=== PATIENT | female | born 1945 | race Caucasian/White ===

== ENCOUNTER 2017-12-13 18:32 | Inpatient (IN) | payer MEDICARE ==
[~2017-12-13] VITALS: Ht 167.6 cm; Wt 87.4 kg
[2017-12-13] MEDS ORDERED: JANUVIA100 MG PO (18:37)
[2017-12-13] MEDS ORDERED: ZESTRIL40 MG PO (18:38)
[2017-12-13] MEDS ORDERED: VESICARE10 MG PO (18:38)
[2017-12-13] MEDS ORDERED: FERROUS SULFAT325 MG PO (18:39)
[2017-12-13] MEDS ORDERED: GABAPENTIN100 MG PO (18:39)
[2017-12-13 19:16] LABS: BASOPHILS 1.2 % (0-2); EOSINOPHILS 5.5 % (0-7); HEMATOCRIT 31.6 % (36.0-48.0); HEMOGLOBIN 10.1 g/dL (12-16); IMMATURE GRANULOCYTES 0.2 % (0-5); LYMPHOCYTES 24.1 % (15-50); MCH 29.7 pg (26.0-34.0); MCV 92.9 fL (80.0-100.0); MEAN PLATELET VOLUME 9.8 fL (7.4-10.4); MONOCYTES 5.5 % (2-11); NEUTROPHILS 63.5 % (40-80); PLATELET COUNT 225 10x3/uL (130-400); RDW 12.9 % (11.5-14.5); WBC 5.1 10x3/uL (4.8-10.8)
[2017-12-13 19:36] LABS: ALBUMIN 2.9 g/dL (3.4-5.0); ANION GAP 17.7 mmol/L (8-16); BILIRUBIN - TOTAL 0.31 mg/dL (0.2-1.3); CALCIUM 8.6 mg/dL (8.5-10.1); CARBON DIOXIDE 19.6 mmol/L (21.0-32.0); CREATININE - SERUM 2.4 mg/dL (0.6-1.3); PROTEIN - SERUM 7.1 g/dL (6.4-8.2)
[2017-12-13 19:37] LABS: POTASSIUM - SERUM 6.3 mmol/L (3.5-5.1)
[2017-12-13 20:35] LABS: APPEARANCE HAZY (CLEAR); BILIRUBIN NEGATIVE (NEGATIVE); COLOR YELLOW (YELLOW); GLUCOSE NEGATIVE (NEGATIVE); KETONE NEGATIVE (NEGATIVE); NITRITE NEGATIVE (NEGATIVE); PROTEIN TRACE mg/dL (NEGATIVE); SPECIFIC GRAVITY 1.015 (1.005-1.020); UROBILINOGEN NORMAL (NORMAL)
[2017-12-13 20:40] LABS: BACTERIA MANY /hpf (NONE SEEN); EPITHELIAL CELLS 0-5 /hpf (0-5); RED CELLS - URINE >50 /hpf (0-5); WHITE CELLS - URINE >50 /hpf (0-5)
[2017-12-13 20:58] VITALS: BP 173/58
[2017-12-13 22:35] VITALS: BP 177/61
[2017-12-14 01:24] VITALS: BP 182/70; BMI 31.1
[2017-12-14 05:52] LABS: BASOPHILS 0.9 % (0-2); HEMATOCRIT 30.7 % (36.0-48.0); HEMOGLOBIN 9.6 g/dL (12-16); IMMATURE GRANULOCYTES 0.2 % (0-5); LYMPHOCYTES 21.2 % (15-50); MCH 28.8 pg (26.0-34.0); MCHC 31.3 g/dL (31.0-37.0); MCV 92.2 fL (80.0-100.0); MEAN PLATELET VOLUME 10.3 fL (7.4-10.4); MONOCYTES 8.4 % (2-11); NEUTROPHILS 64.3 % (40-80); PLATELET COUNT 214 10x3/uL (130-400); RBC 3.33 10x6/uL (4.00-5.40); RDW 12.8 % (11.5-14.5); WBC 5.4 10x3/uL (4.8-10.8)
[2017-12-14 06:19] LABS: ANION GAP 12.7 mmol/L (8-16); CALCIUM 8.4 mg/dL (8.5-10.1); CARBON DIOXIDE 21.9 mmol/L (21.0-32.0); CREATININE - SERUM 2.2 mg/dL (0.6-1.3); MAGNESIUM - SERUM 1.4 mg/dL (1.8-2.4); POTASSIUM - SERUM 5.6 mmol/L (3.5-5.1)
[2017-12-14 07:16] VITALS: BP 182/70
[2017-12-14 08:37] VITALS: BP 161/48
[2017-12-14 10:28] VITALS: Ht 167.6 cm; Wt 87.4 kg
[2017-12-14 16:10] VITALS: BP 157/46
[2017-12-14 20:00] VITALS: BP 119/44
[2017-12-15 00:46] VITALS: BP 164/47
[2017-12-15 04:00] VITALS: BP 128/56
[2017-12-15 07:27] LABS: ANION GAP 14.7 mmol/L (8-16); CARBON DIOXIDE 20.4 mmol/L (21.0-32.0); CREATININE - SERUM 1.8 mg/dL (0.6-1.3); POTASSIUM - SERUM 5.1 mmol/L (3.5-5.1)
[2017-12-15 07:41] VITALS: BP 101/47
[2017-12-15 08:19] LABS: BASOPHILS 1.2 % (0-2); EOSINOPHILS 2.7 % (0-7); HEMATOCRIT 28.7 % (36.0-48.0); HEMOGLOBIN 9.3 g/dL (12-16); LYMPHOCYTES 21.9 % (15-50); MCH 29.2 pg (26.0-34.0); MCHC 32.4 g/dL (31.0-37.0); MEAN PLATELET VOLUME 10.1 fL (7.4-10.4); MONOCYTES 7.4 % (2-11); NEUTROPHILS 66.8 % (40-80); PLATELET COUNT 202 10x3/uL (130-400); RBC 3.19 10x6/uL (4.00-5.40); RDW 12.5 % (11.5-14.5); WBC 4.8 10x3/uL (4.8-10.8)
[2017-12-15 11:06] VITALS: BP 153/50
[2017-12-15 15:52] VITALS: BP 129/57
[2017-12-15 20:00] VITALS: BP 161/46
[2017-12-16 04:00] VITALS: BP 179/55
[2017-12-16 06:38] LABS: ANION GAP 11.3 mmol/L (8-16); CALCIUM 8.5 mg/dL (8.5-10.1); CARBON DIOXIDE 23.3 mmol/L (21.0-32.0); CREATININE - SERUM 1.6 mg/dL (0.6-1.3); POTASSIUM - SERUM 4.6 mmol/L (3.5-5.1)
[2017-12-16 06:42] LABS: BASOPHILS 0.4 % (0-2); EOSINOPHILS 3.8 % (0-7); HEMATOCRIT 29.6 % (36.0-48.0); HEMOGLOBIN 9.5 g/dL (12-16); IMMATURE GRANULOCYTES 0.6 % (0-5); LYMPHOCYTES 24.8 % (15-50); MCH 28.9 pg (26.0-34.0); MCHC 32.1 g/dL (31.0-37.0); MEAN PLATELET VOLUME 10.2 fL (7.4-10.4); MONOCYTES 7.4 % (2-11); PLATELET COUNT 207 10x3/uL (130-400); RBC 3.29 10x6/uL (4.00-5.40); RDW 12.7 % (11.5-14.5)
[2017-12-16 07:55] VITALS: BP 124/49
[2017-12-16 11:28] VITALS: BP 189/63
[2017-12-16 15:30] VITALS: BP 188/57
[2017-12-16 20:38] VITALS: BP 165/45
[2017-12-17 04:00] VITALS: BP 165/55
[2017-12-17 07:04] LABS: BASOPHILS 0.9 % (0-2); EOSINOPHILS 5.6 % (0-7); HEMATOCRIT 30.3 % (36.0-48.0); HEMOGLOBIN 9.9 g/dL (12-16); IMMATURE GRANULOCYTES 0.4 % (0-5); LYMPHOCYTES 21.7 % (15-50); MCH 29.3 pg (26.0-34.0); MCHC 32.7 g/dL (31.0-37.0); MCV 89.6 fL (80.0-100.0); MEAN PLATELET VOLUME 9.7 fL (7.4-10.4); MONOCYTES 7.3 % (2-11); NEUTROPHILS 64.1 % (40-80); PLATELET COUNT 194 10x3/uL (130-400); RBC 3.38 10x6/uL (4.00-5.40); RDW 12.7 % (11.5-14.5); WBC 5.3 10x3/uL (4.8-10.8)
[2017-12-17 07:27] LABS: ANION GAP 13.8 mmol/L (8-16); CALCIUM 8.4 mg/dL (8.5-10.1); CARBON DIOXIDE 22.3 mmol/L (21.0-32.0); CREATININE - SERUM 1.6 mg/dL (0.6-1.3); POTASSIUM - SERUM 4.1 mmol/L (3.5-5.1)
== END 2017-12-17 11:35 | disposition home or self-care (01) | DRG 683 ==
LOC: D.ER 18:32 → D.M2 23:41
PROVIDERS: Family Medicine; Internal Medicine Nephrology
DX: N17.9 Acute kidney failure, unspecified (principal); N39.0 Urinary tract infection, site not specified; B96.20 Unspecified Escherichia coli [E. coli] as the cause of diseases classified elsewhere; I10 Essential (primary) hypertension; E87.5 Hyperkalemia; E83.42 Hypomagnesemia; D50.9 Iron deficiency anemia, unspecified; M19.90 Unspecified osteoarthritis, unspecified site